=== PATIENT | female | born 1985 | race African-American/Black ===

== ENCOUNTER 2017-07-23 05:46 | Emergency (ER) | payer SELFPAY ==
[2017-07-23 06:01] VITALS: BP 119/68
[2017-07-23] MEDS ORDERED: ALBUTEROL SULFATE HFA (90 MCG/PUFF) 8 GM MDI (1 MDI/ER DISP) IH ONE (07:23)
[2017-07-23] MEDS ORDERED: DEXAMETHASONE 4 MG TABLET PO ONE (07:23)
--- NOTE | 2017-07-23 08:06 | ER Document Report ---
ED General - General Chief Complaint: Cold Symptoms Stated Complaint: THROAT,EAR PAIN Time Seen by Provider: 07/23/17 07:17 TRAVEL OUTSIDE OF THE [place] IN LAST 30 DAYS: No - HPI Patient complains to provider of: Throat pain and ear pain congestion Notes: Ongoing for the last 24 hours. Patient denies any fevers chills nausea vomiting sick contacts will be her siblings. Denies any recent antibiotics. Patient resting comfortably upon my evaluation. - Related Data Allergies/Adverse Reactions: No Known Allergies Allergy (Unverified 07/23/17 05:49) Past Medical History - Social History Smoking Status: Never Smoker Family History: Reviewed & Not Pertinent Patient has suicidal ideation: No Patient has homicidal ideation: No Renal/ Medical History: Denies: Hx Peritoneal Dialysis Review of Systems - Review of Systems Constitutional: No symptoms reported EENT: Ear pain, Nose congestion, Sinus pressure, Sinus discharge Cardiovascular: No symptoms reported Respiratory: No symptoms reported Gastrointestinal: No symptoms reported Genitourinary: No symptoms reported Female Genitourinary: No symptoms reported Musculoskeletal: No symptoms reported Skin: No symptoms reported Hematologic/Lymphatic: No symptoms reported Neurological/Psychological: No symptoms reported -: Yes All other systems reviewed and negative Physical Exam - Vital signs Vitals: Temp Pulse Resp BP Pulse Ox 98.5 F 86 18 119/68 98 07/23/17 05:57 07/23/17 05:57 07/23/17 05:57 07/23/17 05:57 07/23/17 05:57 Interpretation: Normal - General General appearance: Appears well, Alert - HEENT Head: Normocephalic, Atraumatic Eyes: Normal Conjunctiva: Normal Cornea: Normal Pupils: PERRL Ears: Normal External canal: Normal Tympanic membrane: Normal Nasal: Normal Pharynx: Erythema, Other - Bilateral tonsillar stones tonsilloliths( - Respiratory Respiratory status: No respiratory distress Chest status: Nontender Breath sounds: Normal Chest palpation: Normal - Cardiovascular Rhythm: Regular Heart sounds: Normal auscultation Murmur: No - Abdominal Inspection: Normal Distension: No distension Bowel sounds: Normal Tenderness: Nontender Organomegaly: No organomegaly - Back Back: Normal, Nontender - Extremities General upper extremity: Normal inspection, Nontender, Normal color, Normal ROM , Normal temperature General lower extremity: Normal inspection, Nontender, Normal color, Normal ROM , Normal temperature, Normal weight bearing. No: Yanet's sign - Neurological Neuro grossly intact: Yes Cognition: Normal Orientation: AAOx4 [place] Coma Scale Eye Opening: Spontaneous Carol Coma Scale Verbal: Oriented [place] Coma Scale Motor: Obeys Commands [place] Coma Scale Total: 15 Speech: Normal Motor strength normal: LUE, RUE, LLE, RLE Sensory: Normal - Psychological Associated symptoms: Normal affect, Normal mood - Skin Skin Temperature: Warm Skin Moisture: Dry Skin Color: Normal Course - Re-evaluation Re-evalutation: 07/23/17 14:25 Patient more likely with viral URI. Patient was discharged on follow-up primary care physician. Notified by nurse that patient did not wait for her discharge instructions as I was involved in a cardiac arrest. - Vital Signs Vital signs: Temp Pulse Resp BP Pulse Ox 98.5 F 86 18 119/68 98 07/23/17 05:57 07/23/17 05:57 07/23/17 05:57 07/23/17 05:57 07/23/17 05:57 Discharge - Discharge Clinical Impression: Upper respiratory infection Qualifiers: URI type: unspecified URI Qualified Code(s): J06.9 - Acute upper respiratory infection, unspecified Condition: Good Disposition: HOME, SELF-CARE Instructions: Upper Respiratory Illness ([facility]) Additional Instructions: Your symptoms are consistent with upper respiratory infection. Please stop smoking. He may use honey for cough. Also recommend taking allergy medication such as Zyrtec-D or Claritin-D for your symptoms. Return to ER symptoms worsen. Prescriptions: Desloratadine/Pseudoephedrine [Clarinex-D 12 Hour Tablet] 1 each PO BID #20 tbmp.12hr
== END 2017-07-23 08:00 | disposition home or self-care (01) ==
LOC: ER 05:46
DX: J06.9 Acute upper respiratory infection, unspecified (principal); H92.09 Otalgia, unspecified ear
CPT/HCPCS: 99283; 87070; 87880; J3490

== ENCOUNTER 2017-10-07 19:02 | Emergency (ER) | payer SELFPAY ==
[2017-10-07 19:12] VITALS: BP 119/66
--- NOTE | 2017-10-07 19:20 | ER Document Report ---
HPI - HPI Pain Level: 4 Notes: Patient is an afebrile, well-hydrated, 32-year-old female who presents to the ED complaining of nasal congestion/discharge, body ache, dry nonproductive cough 3 days. 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 Patient would like a work note. She is still eating and drinking without difficulties. She is urinating normally and having normal bowel movements. She denies any drug allergies. Denies any other significant cardiopulmonary medical history. Denies any smoking or IV drug use. Denies any headache, fever, neck pain, sore throat, chest pain, palpitations, syncope, shortness of breath, wheeze, dyspnea, abdominal pain, nausea/vomiting/diarrhea, urinary retention, dysuria, hematuria, or rash. - ROS Systems Reviewed and Negative: Yes All other systems reviewed and negative Past Medical History - Social History Smoking Status: Never Smoker Family History: Reviewed & Not Pertinent Renal/ Medical History: Denies: Hx Peritoneal Dialysis Vertical Provider Document - CONSTITUTIONAL Agree With Documented VS: Yes Notes: PHYSICAL EXAMINATION: GENERAL: Well-appearing, well-nourished and in no acute distress. A&Ox4. Answers questions appropriately. Moves comfortably w/o notable distress HEAD: Atraumatic, normocephalic. EYES: Pupils equal round and reactive to light, extraocular movements intact, sclera anicteric, conjunctiva are normal. ENT: EAC clear b/l. TM's intact b/l without erythema, fluid, or perforation. Nares patent and with clear discharge. oropharynx no erythema without exudates. No tonsilar hypertrophy without erythema or exudate. No palatine shift. Uvula midline. No tongue protrusion. No drooling, hoarseness, or airway compromise. Moist mucous membranes. No sinus tenderness. NECK: Normal range of motion, supple without lymphadenopathy. No rigidity/ meningismus. LUNGS: Breath sounds clear to auscultation bilaterally and equal. No wheezes rales or rhonchi. No retractions HEART: Regular rate and rhythm without murmurs, rubs, gallops. ABDOMEN: Soft, nontender, nondistended abdomen. No guarding, no rebound. No masses appreciated. Normal bowel sounds present. No CVA tenderness bilaterally. No hepatosplenomegaly. NEUROLOGICAL: Normal speech, normal gait. Normal sensory, motor exams PSYCH: Normal mood, normal affect. SKIN: Warm, Dry, normal turgor, no rashes or lesions noted. - INFECTION CONTROL TRAVEL OUTSIDE OF THE [place] IN LAST 30 DAYS: No Course - Re-evaluation Re-evalutation: 10/07/17 19:28 Patient is an afebrile, well-hydrated, 32-year-old female who presents to the ED with acute URI, suspect viral. Vitals are acceptable. PE is otherwise unremarkable. No labs or imaging warranted at this time based on H&P. Patient has no significant cardiopulmonary or immunocompromised medical conditions. Patient's lungs are clear to auscultation bilaterally without tachycardia, hypoxia, or tachypnea. Patient is tolerating p.o. without any difficulties. Low suspicion for any meningitis, sepsis, peritonsillar/pharyngeal abscess, respiratory compromise, severe dehydration, or other emergent systemic condition at this time. Patient is aware this condition can change from initial presentation and she needs to monitor symptoms closely. Patient declined Toradol. I will send her home with a prescription for Tessalon. Work note provided. Conservative measures otherwise for symptoms. Recheck with your PCM in 3-5 days. Return to the ED with any worsening/concerning symptoms otherwise as reviewed in discharge. Patient is in agreement. - Vital Signs Vital signs: Temp Pulse Resp BP Pulse Ox 99.2 F 92 18 119/66 97 10/07/17 19:11 10/07/17 19:11 10/07/17 19:11 10/07/17 19:11 10/07/17 19:11 Discharge - Discharge Clinical Impression: Acute URI Condition: Stable Disposition: HOME, SELF-CARE Instructions: Upper Respiratory Illness ([facility]) Additional Instructions: Maintain adequate fluid intake Take meds as directed tylenol/ibuprofen as needed over the counter cold medication as needed for symptoms Humidified air may help Wash your hands regularly Wear a mask when coughing F/u: with your PCM in 3-5 days for a recheck Return to the ED with any fever, worsening pain, chest pain, palpitations, syncope, worsening NORMAN, neck pain/stiffness, shortness of breath, wheezing, drooling, trouble swallowing/breathing, abdominal pain, n/v/d, rash, or worsening/concerning symptoms otherwise. Prescriptions: Benzonatate [Tessalon Perle 100 mg Capsule] 100 mg PO Q8HP PRN #15 cap PRN Reason: Forms: Return to Work Referrals: [facility] [Provider Group] - Follow up as needed [facility] [Provider Group] - Follow up as needed
== END 2017-10-07 19:29 | disposition home or self-care (01) ==
LOC: ER 19:02
DX: J06.9 Acute upper respiratory infection, unspecified (principal)
CPT/HCPCS: 99283

== ENCOUNTER 2017-12-01 23:58 | Emergency (ER) | payer SELFPAY ==
[2017-12-02 00:04] VITALS: BP 114/61
--- NOTE | 2017-12-02 00:09 | ER Document Report ---
ED Medical Screen (RME) - General Chief Complaint: Vaginal Discharge Stated Complaint: HEAVY VAGINAL DISCHARGE Time Seen by Provider: 12/02/17 00:08 Mode of Arrival: Ambulatory Information source: Patient Notes: Patient presents complaining of vaginal discharge for the past week with an odor. Patient denies any urinary symptoms or fever. Patient denies any concerns about . I have greeted and performed a rapid initial assessment of this patient. A comprehensive ED assessment and evaluation of the patient, analysis of test results and completion of the medical decision making process will be conducted by additional ED providers. TRAVEL OUTSIDE OF THE [place] IN LAST 30 DAYS: No - Related Data Allergies/Adverse Reactions: No Known Allergies Allergy (Verified 12/02/17 00:00) Past Medical History Renal/ Medical History: Denies: Hx Peritoneal Dialysis Physical Exam - Vital signs Vitals: Temp Pulse Resp BP Pulse Ox 98.1 F 72 14 114/61 99 12/02/17 00:03 12/02/17 00:03 12/02/17 00:03 12/02/17 00:03 12/02/17 00:03 - General General appearance: Appears well, Alert In distress: None Course - Vital Signs Vital signs: Temp Pulse Resp BP Pulse Ox 98.1 F 72 14 114/61 99 12/02/17 00:03 12/02/17 00:03 12/02/17 00:03 12/02/17 00:03 12/02/17 00:03 Doctor's Discharge - Discharge Referrals: CORNELIA GARCIA MD [Primary Care Provider] - Follow up as needed
[2017-12-02 01:20] LABS: RBCS (WET MOUNT) FEW RBCS SEEN; T.VAGINALIS (WET MOUNT) TRICHOMONAS SEEN; WBCS (WET MOUNT) 3+ WBCS SEEN; YEAST (WET MOUNT) NO YEAST SEEN
[2017-12-02 01:21] LABS: BACTERIA (WET MOUNT) 3+ BACTERIA SEEN; EPITHELIALS (WET MOUNT) 3+ EPITHELIALS SEEN
[2017-12-02 01:29] LABS: APPEARANCE,URINE SLIGHTLY-CLOUDY; BILIRUBIN,URINE NEGATIVE (NEGATIVE); COLOR,URINE YELLOW; GLUCOSE, URINE NEGATIVE (NEGATIVE); KETONES,URINE NEGATIVE (NEGATIVE); LEUKOCYTE ESTERASE,URINE MODERATE (NEGATIVE); NITRITE,URINE NEGATIVE (NEGATIVE); PROTEIN,URINE NEGATIVE (NEGATIVE)
[2017-12-02 02:54] LABS: CHLAM PCR NOT DETECTED (NOT DETECT); GON PCR NOT DETECTED (NOT DETECT)
== END 2017-12-02 01:44 | disposition left against medical advice (07) ==
LOC: ER 23:58
DX: N89.8 Other specified noninflammatory disorders of vagina (principal); Z53.20 Procedure and treatment not carried out because of patient's decision for unspecified reasons
CPT/HCPCS: 81001; 81025; 87210; 87491; 87591; 99281

== ENCOUNTER 2018-01-18 08:15 | Emergency (ER) | payer SELFPAY ==
[2018-01-18 08:20] VITALS: BP 116/66
[2018-01-18] MEDS ORDERED: ONDANSETRON 4 MG TAB.RAPDIS PO ONE (09:16)
--- NOTE | 2018-01-18 09:18 | ER Document Report ---
ED Medical Screen (RME) - General Chief Complaint: Nausea/Vomiting Stated Complaint: VOMITING Time Seen by Provider: 01/18/18 09:09 Mode of Arrival: Ambulatory Information source: Patient Notes: Patient presents complaining of nausea and vomiting today. Patient states that she has had intermittent abdominal pain and is concerned that there may be a complication with her IUD. Patient denies any urinary symptoms vaginal bleeding or discharge. Patient denies any fever. I have greeted and performed a rapid initial assessment of this patient. A comprehensive ED assessment and evaluation of the patient, analysis of test results and completion of the medical decision making process will be conducted by additional ED providers. TRAVEL OUTSIDE OF THE [place] IN LAST 30 DAYS: No - Related Data Allergies/Adverse Reactions: No Known Allergies Allergy (Verified 12/02/17 00:00) Past Medical History - Social History Chew tobacco use (# tins/day): No Frequency of alcohol use: None Drug Abuse: None Renal/ Medical History: Denies: Hx Peritoneal Dialysis Physical Exam - Vital signs Vitals: Temp Pulse Resp BP Pulse Ox 99.2 F 76 14 116/66 99 01/18/18 08:19 01/18/18 08:19 01/18/18 08:19 01/18/18 08:19 01/18/18 08:19 - General General appearance: Appears well, Alert In distress: None Course - Vital Signs Vital signs: Temp Pulse Resp BP Pulse Ox 99.2 F 76 14 116/66 99 01/18/18 08:19 01/18/18 08:19 01/18/18 08:19 01/18/18 08:19 01/18/18 08:19 Doctor's Discharge - Discharge Referrals: CORNELIA GARCIA MD [Primary Care Provider] - Follow up as needed
--- NOTE | 2018-01-18 09:43 | ER Document Report ---
ED General - General Chief Complaint: Nausea/Vomiting Stated Complaint: VOMITING Time Seen by Provider: 01/18/18 09:09 Mode of Arrival: Ambulatory TRAVEL OUTSIDE OF THE [place] IN LAST 30 DAYS: No - HPI Notes: iud x 1 year ago. no feeling ok - Related Data Allergies/Adverse Reactions: No Known Allergies Allergy (Verified 12/02/17 00:00) Past Medical History - General Information source: Patient - Social History Smoking Status: Never Smoker Chew tobacco use (# tins/day): No Frequency of alcohol use: None Drug Abuse: None Family History: Reviewed & Not Pertinent Patient has suicidal ideation: No Patient has homicidal ideation: No Renal/ Medical History: Denies: Hx Peritoneal Dialysis Physical Exam - Vital signs Vitals: Temp Pulse Resp BP Pulse Ox 99.2 F 76 14 116/66 99 01/18/18 08:19 01/18/18 08:19 01/18/18 08:19 01/18/18 08:19 01/18/18 08:19 Course - Vital Signs Vital signs: Temp Pulse Resp BP Pulse Ox 99.2 F 76 14 116/66 99 01/18/18 08:19 01/18/18 08:19 01/18/18 08:19 01/18/18 08:19 01/18/18 08:19 - Laboratory Result Diagrams: 01/18/18 10:25 01/18/18 10:25 Discharge - Discharge Clinical Impression: Flank pain Condition: Stable Disposition: HOME, SELF-CARE Instructions: Abdominal Pain ([facility]) Additional Instructions: Flank Pain We weren't able to prove an exact cause for your flank pain. Pain in the flank can be caused by a muscle strain or spasm. Sometimes a kidney stone causes pain, but can't be found on our tests. Infection in the kidney should be evident on a urine test. Early shingles can occasionally cause flank pain, without the rash that proves the diagnosis. On rare occasions, disease of the pancreas, aorta, spleen, or colon can create pain in the flank. At this time, there's no evidence of a dangerous condition, and it seems safe for you to be at home. If the pain goes away and does not come back, no further testing will be needed. If pain persists, or becomes more severe, we may need to repeat some tests or order additional new testing. Blood in the urine, urgency to urinate frequently, and pain that radiates to the groin can indicate a kidney stone. Fever may mean that the pain is due to infection, either of the kidney or the colon (diverticulitis). If your pain is early shingles, you should develop an eruption of blisters in the painful area within a few days. Call the doctor or return if you have pain that is spreading or becoming more severe, pain that does not resolve with time, fever, or any other new symptoms. Return immediately for any new or worsening symptoms. Follow up with primary care provider, call tomorrow to make followup appointment. Prescriptions: Ibuprofen 600 mg PO QIDP PRN #20 tablet PRN Reason: Forms: Return to Work Referrals: CORNELIA GARCIA MD [Primary Care Provider] - Follow up as needed KALEB ZAMUDIO MD [ACTIVE STAFF] - Follow up as needed
[2018-01-18 10:51] LABS: ABSOLUTE EOSINOPHILS # (AUTO) 0.1 10^3/uL (0.0-0.6); ABSOLUTE LYMPHOCYTES (AUTO) 1.8 10^3/uL (0.5-4.7); ABSOLUTE MONOCYTES (AUTO) 0.5 10^3/uL (0.1-1.4); ABSOLUTE NEUT (AUTO) 4.3 10^3/uL (1.7-8.2); BASOPHILS % (AUTO) 0.1 % (0-2); HEMATOCRIT 42.5 % (36.0-47.0); HEMOGLOBIN 14.4 g/dL (12.0-15.5); LYMPHOCYTES % (AUTO) 27.3 % (13-45); MEAN CORPUSCULAR HEMOGLOBIN 29.6 pg (27.0-33.4); MEAN CORPUSCULAR HGB CONC 33.9 g/dL (32.0-36.0); MEAN CORPUSCULAR VOLUME 87 fl (80-97); MONOCYTES % (AUTO) 7.2 % (3-13); PLATELET COUNT 245 10^3/uL (150-450); RED BLOOD COUNT 4.86 10^6/uL (3.72-5.28); RED CELL DISTRIBUTION WIDTH 13.4 % (11.5-14.0); SEGMENTED NEUTROPHILS % (AUTO) 64.4 % (42-78); TOTAL CELLS COUNTED % (AUTO) 100 %; WHITE BLOOD COUNT 6.7 10^3/uL (4.0-10.5)
[2018-01-18 11:09] LABS: APPEARANCE,URINE CLEAR; BILIRUBIN,URINE NEGATIVE (NEGATIVE); COLOR,URINE YELLOW; GLUCOSE, URINE NEGATIVE (NEGATIVE); KETONES,URINE NEGATIVE (NEGATIVE); LEUKOCYTE ESTERASE,URINE NEGATIVE (NEGATIVE); NITRITE,URINE NEGATIVE (NEGATIVE); PROTEIN,URINE NEGATIVE (NEGATIVE); URINE SPECIFIC GRAVITY 1.016; UROBILINOGEN,URINE NEGATIVE mg/dL (<2.0)
[2018-01-18 11:11] LABS: ALANINE AMINOTRANSFERASE 25 U/L (9-52); ALKALINE PHOSPHATASE 66 U/L (38-126); ANION GAP 10 (5-19); ASPARTATE AMINO TRANSFERASE 19 U/L (14-36); BILIRUBIN,DIRECT 0.2 mg/dL (0.0-0.4); BILIRUBIN,TOTAL 0.5 mg/dL (0.2-1.3); BLOOD UREA NITROGEN 11 mg/dL (7-20); CALCIUM 9.5 mg/dL (8.4-10.2); CARBON DIOXIDE 28 mmol/L (22-30); CHLORIDE 105 mmol/L (98-107); GLUCOSE 88 mg/dL (75-110); LIPASE 57.3 U/L (23-300); POTASSIUM 4.6 mmol/L (3.6-5.0); SODIUM 142.9 mmol/L (137-145); TOTAL PROTEIN 7.2 g/dL (6.3-8.2)
--- NOTE | 2018-01-18 11:19 | RADIOLOGY REPORT (SQ) ---
EXAM DESCRIPTION: U/S [employer] LTD COMPLETED DATE/TIME: 01/18/2018 11:05 am REASON FOR STUDY: R flank pain with n/v COMPARISON: None. TECHNIQUE: Dynamic and static grayscale images acquired of the kidneys and bladder and recorded on P ACS. Additional selected color Doppler and spectral images recorded. LIMITATIONS: None. FINDINGS: RIGHT KIDNEY: Normal size, 11.4 cm. Normal echogenicity. No solid or suspicious manolo s. No hydronephrosis. No calcifications. LEFT KIDNEY: Normal size, 11.3 cm. Normal echogenicity. No solid or suspicious masses. No hydr onephrosis. No calcifications. BLADDER: No masses. Ureteral jets were not seen. OTHER FINDINGS: No other significant finding. IMPRESSION: NORMAL RENAL AND BLADDER ULTRASOUND. TECHNICAL DOCUMENTATION: JOB ID: [id number] [employer]- All Rights Reserved Reading location - IP/workstation name: [email or web address]
== END 2018-01-18 12:45 | disposition home or self-care (01) ==
LOC: ER 08:15
DX: R10.9 Unspecified abdominal pain (principal); R11.2 Nausea with vomiting, unspecified
CPT/HCPCS: 99284; 36415; 84702; 83690; 85025; 80053; 81001; 76775; S0119

== ENCOUNTER 2018-07-04 07:13 | Emergency (ER) | payer MEDICAID ==
[2018-07-04] MEDS ORDERED: CYCLOBENZAPRINE HCL 10 MG TABLET PO ONE (08:09)
[2018-07-04] MEDS ORDERED: IBUPROFEN 800 MG TABLET PO ONE (08:09)
--- NOTE | 2018-07-04 08:17 | ER Document Report ---
HPI - HPI Patient complains to provider of: right sided neck pain Time Seen by Provider: 07/04/18 07:31 Pain Level: 4 Context: Patient is a 33-year-old female presents to the emergency department with generalized right sided neck pain. Patient states she woke up yesterday morning feeling a tightness in the right side of her neck with increased pain when she tries to rotate her neck to the right. Patient is denying any sort of injury but states that the pain has increased which is inevitably why she presents to the emergency room. Patient is denying any fever, numbness or tingling in any extremity, loss of bowel or bladder or urinary retention, headache, or any other symptoms. Patient has taken no medications for this generalized pain Past medical history: None Medications: None Allergies: None Surgical history: None Patient is denying current or previous IV drug use. - REPRODUCTIVE Reproductive: DENIES: : Past Medical History - General Information source: Patient - Social History Smoking Status: Never Smoker Family History: Reviewed & Not Pertinent Patient has suicidal ideation: No Patient has homicidal ideation: No Renal/ Medical History: Denies: Hx Peritoneal Dialysis Vertical Provider Document - CONSTITUTIONAL Agree With Documented VS: Yes Notes: GENERAL: Alert, interacts well. No acute distress. HEAD: Normocephalic, atraumatic. EYES: Pupils equal, round, and reactive to light. Extraocular movements intact. ENT: Oral mucosa moist, tongue midline. TMs intact nonerythematous, nonbulging bilaterally. Pharynx within normal limits nonerythematous no palatal petechiae or exudate noted NECK: Slow and at times painful but full range of motion. Supple. Trachea midlin e. No nuchal rigidity noted. Patient has pain right paraspinal radiating down into her trapezius muscle at times has pain in her right sternocleidomastoid muscle upon flexion and extension of her neck. No cervical spine tenderness noted. LUNGS: Clear to auscultation bilaterally, no wheezes, rales, or rhonchi. No respiratory distress. HEART: Regular rate and rhythm. No murmur ABDOMEN: Soft, non-tender. Non-distended. Bowel sounds present in all 4 quadrants. EXTREMITIES: Moves all 4 extremities spontaneously. No edema, normal radial and dorsalis pedis pulses bilaterally. No cyanosis. BACK: no cervical, thoracic, lumbar midline tenderness. No saddle anesthesia, normal distal neurovascular exam. NEUROLOGICAL: Alert and oriented x3. Normal speech. cranial nerves II through XII grossly intact PSYCH: Normal affect, normal mood. SKIN: Warm, dry, normal turgor. No rashes or lesions noted. - INFECTION CONTROL TRAVEL OUTSIDE OF THE [place] IN LAST 30 DAYS: No Course - Re-evaluation Re-evalutation: 07/04/18 08:14 Patient's physical exam is consistent with potential torticollis. Discussed use of NSAIDs and muscle relaxers. Discussed close follow-up with primary care provider and return precautions. Patient stable for discharge. - Vital Signs Vital signs: Temp Pulse Resp BP Pulse Ox 97.9 F 85 16 121/67 100 07/04/18 07:17 07/04/18 07:17 07/04/18 07:17 07/04/18 07:17 07/04/18 07:17 Discharge - Discharge Clinical Impression: Torticollis, acute Condition: Stable Disposition: HOME, SELF-CARE Instructions: Neck Injury (Cervical Strain) ([facility]), Torticollis ([facility]) Additional Instructions: As we discussed you have been seen and treated in the emergency department for something called torticollis. This is a spasm in the muscles in your neck. Please make sure you continue to take [id number] Tylenol and Motrin. Please also take muscle relaxers as prescribed. Please return to the emergency room for any other concerning symptoms. Prescriptions: Cyclobenzaprine HCl [Flexeril 10 mg Tablet] 10 mg PO TIDP PRN #15 tab PRN Reason: Forms: Return to Work, Special Work Note
[2018-07-04 08:56] VITALS: BP 116/61
== END 2018-07-04 08:45 | disposition home or self-care (01) ==
LOC: ER 07:13
DX: M43.6 Torticollis (principal); M54.2 Cervicalgia
CPT/HCPCS: 99283; J3490 ×2

== ENCOUNTER 2019-01-26 20:25 | Emergency (ER) | payer MEDICAID ==
[2019-01-26 21:15] VITALS: BP 118/66
[2019-01-26 22:19] LABS: APPEARANCE,URINE CLEAR; BILIRUBIN,URINE NEGATIVE (NEGATIVE); COLOR,URINE YELLOW; GLUCOSE, URINE NEGATIVE (NEGATIVE); KETONES,URINE NEGATIVE (NEGATIVE); LEUKOCYTE ESTERASE,URINE NEGATIVE (NEGATIVE); NITRITE,URINE NEGATIVE (NEGATIVE); PROTEIN,URINE NEGATIVE (NEGATIVE); URINE SPECIFIC GRAVITY 1.021; UROBILINOGEN,URINE NEGATIVE mg/dL (<2.0)
== END 2019-01-26 23:52 | disposition left against medical advice (07) ==
LOC: ER 20:25
DX: Z53.21 Procedure and treatment not carried out due to patient leaving prior to being seen by health care provider (principal)
CPT/HCPCS: 81001

== ENCOUNTER 2019-01-27 15:49 | Emergency (ER) | payer BC, MEDICAID ==
[2019-01-27 17:10] LABS: RBCS (WET MOUNT) RARE RBCS SEEN; T.VAGINALIS (WET MOUNT) NO TRICHOMONAS SEEN; WBCS (WET MOUNT) RARE WBCS SEEN; YEAST (WET MOUNT) NO YEAST SEEN
[2019-01-27 17:14] LABS: APPEARANCE,URINE CLEAR; BILIRUBIN,URINE NEGATIVE (NEGATIVE); COLOR,URINE YELLOW; GLUCOSE, URINE NEGATIVE (NEGATIVE); KETONES,URINE NEGATIVE (NEGATIVE); LEUKOCYTE ESTERASE,URINE NEGATIVE (NEGATIVE); NITRITE,URINE NEGATIVE (NEGATIVE); PROTEIN,URINE NEGATIVE (NEGATIVE); URINE SPECIFIC GRAVITY 1.023; UROBILINOGEN,URINE NEGATIVE mg/dL (<2.0)
[2019-01-27] MEDS ORDERED: LIDOCAINE 1% INJ-PF (10 MG/ML) 30 ML SDV IM ONE (17:42)
[2019-01-27] MEDS ORDERED: CEFTRIAXONE INJ 250 MG VIAL IM ONE (17:42)
[2019-01-27] MEDS ORDERED: AZITHROMYCIN 250 MG TABLET PO ONE (17:42)
--- NOTE | 2019-01-27 17:59 | ER Document Report ---
HPI - HPI Time Seen by Provider: 01/27/19 16:04 Pain Level: 2 Notes: Patient is an otherwise healthy 33-year-old female presented to the emergency department with concern for abnormal vaginal discharge. Patient reports she first noticed this a few days ago. She denies any abdominal pain or pelvic pain. She denies any possibility of . She reports that she recently changed her vaginal soap. When asked if she has concern for STD she states that she does not believe so but she would like to be tested and prophylactically treated. - REPRODUCTIVE Reproductive: DENIES: : - DERM Skin Color: Normal Past Medical History - General Information source: Patient - Social History Smoking Status: Never Smoker Frequency of alcohol use: None Drug Abuse: None Family History: Reviewed & Not Pertinent Patient has suicidal ideation: No Patient has homicidal ideation: No - Medical History Medical History: Negative Renal/ Medical History: Denies: Hx Peritoneal Dialysis Surgical Hx: Negative - Immunizations Immunizations up to date: Yes Vertical Provider Document - CONSTITUTIONAL Notes: PHYSICAL EXAMINATION: GENERAL: Well-appearing, well-nourished and in no acute distress. HEAD: Atraumatic, normocephalic. EYES: Pupils equal round extraocular movements intact, conjunctiva are normal. ENT: Nares patent NECK: Normal range of motion LUNGS: No respiratory distress Abdomen: Abdomen soft, nontender, no guarding or rebound. No CVA tenderness. Musculoskeletal: Normal range of motion NEUROLOGICAL: Normal speech, normal gait. PSYCH: Normal mood, normal affect. SKIN: Warm, Dry, normal turgor, no rashes or lesions noted. - INFECTION CONTROL TRAVEL OUTSIDE OF THE [place] IN LAST 30 DAYS: No Course - Re-evaluation Re-evalutation: Patient's work-up today was unremarkable. Her urinalysis and wet prep did not show any obvious abnormality. Chlamydia and gonorrhea testing are pending. Patient would like prophylactic treatment, she will be given azithromycin and Rocephin. ED return precautions were discussed, patient verbalized understanding and agreement with same. The patient's emergency department workup and current diagnosis were explained to the patient and or family. Follow-up instructions were provided. Medications if prescribed were discussed. Instructions for when to return to the emergency department including specific worrisome symptoms were discussed with the patient and/or family. - Vital Signs Vital signs: Temp Pulse Resp BP Pulse Ox 98.6 F 72 16 135/62 H 98 01/27/19 15:56 01/27/19 15:56 01/27/19 15:56 01/27/19 15:56 01/27/19 15:56 Discharge - Discharge Clinical Impression: Vaginal discharge Condition: Stable Disposition: HOME, SELF-CARE Additional Instructions: Your work-up today was unremarkable. There does not appear to be an overgrowth of bacteria or yeast in the vagina. The urinalysis was normal. The chlamydia and gonorrhea test is still pending, this takes several hours. You were treated prophylactically today per your request. Our culture nurse will call you and let you know if the results are positive. I would suggest not using any more scented soaps in the vaginal area as this can throw off the normal pH.
[2019-01-27 18:06] VITALS: BP 123/84
[2019-01-27 18:42] LABS: CHLAM PCR NOT DETECTED (NOT DETECT)
== END 2019-01-27 18:07 | disposition home or self-care (01) ==
LOC: ER 15:49
DX: N89.8 Other specified noninflammatory disorders of vagina (principal)
CPT/HCPCS: 87210; 81025; 81001; 87491; 87591; J3490; J0696; 96372; 99283